=== PATIENT | male | born 1995 | race Caucasian/White ===

== ENCOUNTER 2016-06-06 02:40 | Inpatient (IN) | payer BC ==
[2016-06-06] MEDS ORDERED: IBUPROFEN 800 MG TAB PO STA (04:26)
--- NOTE | 2016-06-06 05:07 | XR ---
PROCEDURE: FILM RIGHT SHOULDER HISTORY: 20-year-old male with right shoulder pain. COMPARISON: None TECHNIQUE: Frontal internal rotation, frontal external rotation, and transscapular-Y views of the right shoulder were obtained. FINDINGS: Bony structures are intact. Joint spaces are preserved. Soft tissues are within normal limits. IMPRESSION: Unremarkable views of the right shoulder.
--- NOTE | 2016-06-06 05:08 | ED ---
Psych HPI - General Source: patient, RN notes reviewed, old records reviewed Mode of arrival: ambulatory <Leidy Phillips - Last Filed: 06/06/16 05:38> <Brock Cazares - Last Filed: 06/07/16 00:31> - General Chief Complaint: Psychiatric Symptoms Stated Complaint: mental health Time Seen by Provider: 06/06/16 03:19 - History of Present Illness Initial Comments: Patient is a 20-year-old male with a chief complaint of suicidal ideation for approximately 2 days. Patient reports that on Monday he took an overdose of his Flexeril, Neurontin, and proceeded to vomit the following morning. Patient reports that when he vomited the following morning he did strain his right shoulder. He reports that he has been feeling suicidal for a long time. He reports he was along with this. 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 He denies any homicidal ideation. He reports that he has been battling with depression for the past few years. He reports that he recently broke up with a girlfriend and is trying to get over this. He states that he feels as no one cares about what he wants to do in life. He reports that he did tell her his mother have these feelings and she encouraged him to come to the emergency department. He reports that he has nothing to live for and cannot find the ligia in anything. He reports that he has to motions, anger and depression. He does report that he has heard voices in his head telling him negative thoughts. (Leidy Phillips) - Related Data Home Medications Medication Instructions Recorded Confirmed Cyclobenzaprine [Flexeril] 10 mg PO DAILY PRN 06/06/16 06/06/16 Escitalopram [Lexapro] 10 mg PO DAILY 06/06/16 06/06/16 Gabapentin [Neurontin] 400 mg PO TID 06/06/16 06/06/16 Lubiprostone [Amitiza] 8 mcg PO BID 06/06/16 06/06/16 Naproxen Sodium [Aleve] 440 mg PO Q12HR PRN 06/06/16 06/06/16 Allergies Allergy/AdvReac Type Severity Reaction Status Date / Time No Known Allergies Allergy Verified 06/06/16 02:48 Review of Systems ROS Other: All systems not noted in ROS Statement are negative. <Leidy Phillips - Last Filed: 06/06/16 05:38> ROS Other: All systems not noted in ROS Statement are negative. <Brock Cazares - Last Filed: 06/07/16 00:31> ROS Statement: Those systems with pertinent positive or pertinent negative responses have been documented in the HPI. Past Medical History Past Medical History: Hypertension Additional Past Medical History / Comment(s): SL ELEV BLOOD PRESSURE, NO TX. POS BLOOD IN STOOL. History of Any Multi-Drug Resistant Organisms: None Reported Additional Past Surgical History / Comment(s): ESOPHAGOSCOPY, AGE 10. PENILE SURG AGE [age]. EXC WISDOM TEETH. Past Anesthesia/Blood Transfusion Reactions: Motion Sickness Additional Past Anesthesia/Blood Transfusion Reaction / Comment(s): MILK MOTION SICKNESS Past Psychological History: Anxiety, Depression Smoking Status: Current some day smoker Past Alcohol Use History: None Reported Additional Past Alcohol Use History / Comment(s): SMOKED 1 PACK PER WK X4 YEARS , QUIT 09/2015. Past Drug Use History: Marijuana Additional Drug Use History / Comment(s): DAILY USE - Past Family History Mother Family Medical History: Cancer <Leidy Phillips - Last Filed: 06/06/16 05:38> General Exam Limitations: no limitations General appearance: alert, in no apparent distress Head exam: Present: atraumatic, normocephalic, normal inspection Eye exam: Present: normal appearance, PERRL, EOMI. Absent: scleral icterus, conjunctival injection, periorbital swelling ENT exam: Present: normal exam, mucous membranes moist Neck exam: Present: normal inspection. Absent: tenderness, meningismus, lymphadenopathy Respiratory exam: Present: normal lung sounds bilaterally. Absent: respiratory distress, wheezes, rales, rhonchi, stridor Cardiovascular Exam: Present: regular rate, normal rhythm, normal heart sounds. Absent: systolic murmur, diastolic murmur, rubs, gallop, clicks GI/Abdominal exam: Present: soft, normal bowel sounds. Absent: distended, tenderness, guarding, rebound, rigid Extremities exam: Present: normal inspection, full ROM, normal capillary refill. Absent: tenderness, pedal edema, joint swelling, calf tenderness Right Shoulder Exam: Present: normal inspection, full ROM Upper Arm exam: Present: normal inspection, full ROM Elbow exam: Present: normal inspection, full ROM Forearm Wrist exam: Present: normal inspection, full ROM Hand Wrist exam: Present: normal inspection, full ROM Back exam: Present: normal inspection Neurological exam: Present: alert, oriented X3, CN II-XII intact Psychiatric exam: Present: depressed, suicidal ideation. Absent: normal affect , normal mood, agitated, anxious, flat affect, manic, homicidal ideation Skin exam: Present: warm, dry, intact, normal color. Absent: rash <Leidy Phillips - Last Filed: 06/06/16 05:38> <Brock Cazares - Last Filed: 06/07/16 00:31> - General Exam Comments Initial Comments: Well-appearing 20-year-old male. (Leidy Phillips) Medical Decision Making - Radiology Data Radiology results: report reviewed <Leidy Phillips - Last Filed: 06/06/16 05:38> - Lab Data Result diagrams: 06/06/16 09:30 06/06/16 09:30 <Brock Cazares - Last Filed: 06/07/16 00:31> - Medical Decision Making Patient is a 18-year-old male with chief complaint of suicidal ideation. He reports it has nothing to live for. He reports that on Monday he took multiple pain medications in order to kill himself. Reports he woke up the next morning and vomited. He reports the only history of motions, anger and sadness. Patient denies any homicidal ideations. He does report that he hears voices that tell negative thoughts. Patient also reports that he did strain his right shoulder. Straight of the shoulder is reviewed to be negative for any acute process. I will give the patient Motrin at this time. Patient will be medically clear at this time for psychiatric evaluation. ( Leidy Phillips) - Lab Data Lab Results 06/06/16 Range/Units 03:23 Urine Opiates Screen Not Detected (NotDetected) Ur Oxycodone Screen Not Detected (NotDetected) Urine Methadone Screen Not Detected (NotDetected) Ur Propoxyphene Screen Not Detected (NotDetected) Ur Barbiturates Screen Not Detected (NotDetected) U Tricyclic Antidepress Detected H (NotDetected) Ur Phencyclidine Scrn Not Detected (NotDetected) Ur Amphetamines Screen Not Detected (NotDetected) U Methamphetamines Scrn Not Detected (NotDetected) U Benzodiazepines Scrn Not Detected (NotDetected) Urine Cocaine Screen Not Detected (NotDetected) U Marijuana (THC) Screen Detected H (NotDetected) - Radiology Data Shoulder x-rays are negative. (Leidy Phillips) Disposition Time of Disposition: 05:38 <Leidy Phillips - Last Filed: 06/06/16 05:38> <Brock Cazares - Last Filed: 06/07/16 00:31> Clinical Impression: Suicidal ideation Disposition: ADMITTED IP TO THIS [facility] Condition: Stable
[2016-06-06] MEDS ORDERED: MAG HYDROX/AL HYDROX/SIMETH 30 ML CUP PO PRN (07:12)
[2016-06-06] MEDS ORDERED: ACETAMINOPHEN TAB 325 MG TAB PO PRN (07:12)
[2016-06-06] MEDS ORDERED: MAGNESIUM HYDROXIDE 2,400 MG/10 ML CUP PO PRN (07:12)
[2016-06-06] MEDS ORDERED: LORazepam 1 MG TAB PO PRN (07:20)
[2016-06-06 10:00] LABS: Basophils % (A) 1 %; CH 29.6; CHCM 33.2; Eosinophils # (A) 0.1 k/uL (0-0.7); Eosinophils % (A) 2 %; HDW 2.25; HGB 14.8 gm/dL (13.0-17.5); Luc % (Auto) 2; Lymphocytes % (A) 19 %; MCH 28.9 pg (25.0-35.0); MCHC 32.3 g/dL (31.0-37.0); MCV 89.4 fL (80.0-100.0); Mean Platelet Volume 7.7; Monocytes # (A) 0.2 k/uL (0-1.0); Monocytes % (A) 4 %; Neutrophils # (A) 3.6 k/uL (1.3-7.7); Neutrophils % (A) 72 %; RBC 5.14 m/uL (4.30-5.90); RDW 11.9 % (11.5-15.5); WBC (Perox) 5.16
[2016-06-06 10:09] LABS: ALT 20 U/L (21-72); AST 15 U/L (17-59); Alkaline Phosphatase 60 U/L (38-126); Anion Gap 12 mmol/L; Blood Urea Nitrogen 18 mg/dL (9-20); Calcium 9.8 mg/dL (8.4-10.2); Carbon Dioxide 28 mmol/L (22-30); Chloride 100 mmol/L (98-107); Glucose 97 mg/dL (74-99); Non-African American GFR(MDRD) >60 (>60 ml/min/1.73 sqM); Potassium 3.8 mmol/L (3.5-5.1); Sodium 140 mmol/L (137-145); Total Bilirubin 0.9 mg/dL (0.2-1.3); Total Protein 7.7 g/dL (6.3-8.2)
[2016-06-06] MEDS ORDERED: IBUPROFEN 800 MG TAB PO PRN (13:24)
[2016-06-06] MEDS: GABAPENTIN 100 MG CAP PO SCH ×2 (15:59→21:23)
[2016-06-06] MEDS: MIRTAZAPINE 15 MG TAB PO SCH (21:23)
--- NOTE | 2016-06-07 06:01 | HP ---
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 Patient presented to the mental health unit on voluntary basis for depression and suicidal ideation. HISTORY OF PRESENT ILLNESS: Patient stated that he has history of depression since age 11; however, his depression has been getting worse since January 2016 after the end of 4-year relationship. Patient stated that for the last 2 to 3 weeks he has been overwhelmed, feeling hopeless, helpless, crying episodes, thinking about suicide with different plans between overdose on medication or hanging himself. Patient completed the [facility] depression inventory and a total score was 43 consistent with severe symptoms of depression. He endorses self dislike, self doubt as he mentioned couple of times "I look like a child, I don't have any muscles and I am underweight". Loss of pleasure, indecisive, loss of energy, not sleeping at night, irritability, anger outbursts. He lost 15 pounds over the last 6 months due to poor appetite. He kept saying, "I'm having horrible self image". During my interview, the patient did not stop crying throughout the session. He denied any auditory or visual hallucination. He denied any idea of reference or thought of broadcasting. He described increased anxiety characterized by restless feeling, feeling on edge, irritability, and racing mind. Patient stated that recently he has been struggling with the issue regarding his sexual identity as he has marked feeling of inadequacy concerning his sexual performance also related to "I'm not masculine enough" . He did admit that for the last year he had experience with different lover, but he has been feeling guilty about this because "I told my girlfriend and she stated that she cannot forgive me". Patient did admit that he has persistent and marked distress about his sexual orientation according to him, "I don't think I am loyola, because I'm missing my girlfriend, but I do like to have it both ways". Patient talked about ongoing stressors in addition that the end of 4 year relationship. Patient has been struggling with shoulder pain for the last 7 months and he was on short-term medical leave from his job due to shoulder pain, but they did tell him to go back to work on May 11 and since then he stated that he has been overwhelmed with job and with chronic pain. Patient had complete workup, even including he had steroid injection and he still rating his pain 10 from 10, 10 being the worse. Patient stated that he does not have a lot of friends and he is ( introverted ) "My girlfriend was my best friend and my lover and I was planning to get ". SUBSTANCE ABUSE HISTORY: 1. Alcohol: He started drinking at age 14 or 15, but according to him, "It's not an issue at all. I just don't like to drink on daily basis". When I did ask him when was the last time that he drank and how much, he stated it was last week. He had at least have a pint of vodka. He denied any withdrawal symptoms. 2. Cannabis: He started smoking marijuana 4 or 5 years ago but according to him it started just half a joint and for the last 7 months since he has been off on medical leave for his ( ) he was smoking up to 8 joints a day. PAST PSYCHIATRIC HISTORY: There is outpatient counseling for a couple of years at age 6. According to him his mother took him to therapy for "I had an anger outburst and I was addicted to the internet". His primary care physician started him on antidepressant 2 years ago. He tried Zoloft, but it did give him a lot of sexual side effect then he was on Lexapro and he stated it did help him, but patient discontinued the medication a few months ago. FAMILY HISTORY OF PSYCHIATRIC ILLNESS: Patient mother had history of depression and she told him that she attempted suicide when she was teen age. HIS HOME MEDICATION: 1. Neurontin 400 mg 1 tablet 4 times a day. 2. Flexeril p.r.n. ALLERGIES: There is no known allergy. MEDICAL HISTORY: Bursitis in both shoulders. SOCIAL HISTORY: Patient's parents never . Patient was raised by his mother. He stated that at the end of the third grade his mother decided to let him be home schooling because "I was very introverted and she did not want the kids making fun of me". He did have very limited social activity and according to him most of the day he was in homeschooling or on the internet. At age 10 and 11, he stated that he started feeling distant from his mother because "We don't see eye to eye with each other". Patient's biological father was not in the picture; however, he was paying child support. 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 He has been living on his own since age 16. His girlfriend, Zee, was living with him up to January 2016 In addition to some issue relationship regarding his sexual identity , patient has been in chronic pain from his right shoulder for the last 7 months. Patient denied any current legal problem. MENTAL STATUS EXAMINATION: Patient presented as young male who looks much younger than stated age. There is no eye contact. He kept looking at the floor, crying through the session. Speech is coherent, at times circumstantial. Thought process is linear, but at times as I mentioned, circumstantial. There is no evidence of looseness of association or flight of idea. He endorses depressed mood with recent suicidal ideation. He reports no homicidal ideation. Affect is very labile. He demonstrates no verbal or physical aggression. There is no psychomotor agitation. He endorses no auditory or visual hallucination. No specific delusion or idea of reference. He does not appear manic or hypomanic. It seems that he has been struggling with his self image and his sexual identity and he stated that he never talked about it except with his girlfriend. There is a lot of his obsession and rumination about his body and his weight in addition to his sexual identity. His thinking appears concrete. His insight and judgment are limited. INTELLECTUAL FUNCTION: Average. Patient is aware of illness and the need for mental health treatment. STRENGTHS: Patient has his own income and able to ask for help. WEAKNESS: Substance abuse problem, relationship problem, chronic back pain. DISCHARGE DIAGNOSES: 1. Major depression, recurrent, severe, without psychotic feature. 2. Marijuana use disorder. 3. Sexual identity disorder, not otherwise specified. 4. Chronic pain. PLAN: Patient has been admitted to the mental health unit on voluntary basis. I reviewed his symptoms and the medication option. I did discuss with him to restart him on Lexapro and I will add mirtazapine or Remeron at bedtime to restore his appetite and sleep. Regarding his Neurontin for his chronic pain. I will cut it down from 400 four times to just 200 three times a day to minimize sedation and tiredness. I will give him Motrin 800 every 8 hours p.r.n. for pain. Patient will participate in group therapy as tolerated. Will request a routine medical consultation. Social work will meet with the patient to complete psychosocial assessment and begin discharge planning. Will monitor the patient for his safety and any side effect from psychotropic medication. Length of stay 5 to 6 days. MTDD
[2016-06-07] MEDS: ESCITALOPRAM 10 MG TAB PO SCH (09:38)
[2016-06-07] MEDS: GABAPENTIN 100 MG CAP PO SCH ×3 (09:38→21:25)
--- NOTE | 2016-06-07 10:25 | CONS ---
DATE OF CONSULTATION: 06/06/2016 REASON FOR CONSULTATION: Medical management requested by Dr. Lara. CONSULTATION: This very pleasant 20-year-old patient of Dr. Fountain has got a history of anxiety, depression, also got chronic bursitis he has been told for which he was taking marijuana and kept taking more and more as it did not help and he felt clouded with the same. Amongst other things, the patient has a low self profile and broke up with his girlfriend a few months ago, still getting to him. Patient actually has had suicidal ideations for 2 days. Patient took an overdose of his Flexeril, Neurontin and proceeded to vomit the following morning. He has been having a low ( ) for quite sometime and thus decided to get in. REVIEW OF SYSTEMS: CONSTITUTIONAL: None. HEENT: Some acne. RESPIRATORY: None. CARDIOVASCULAR: None. GASTROINTESTINAL: None. GENITOURINARY: None. MUSCULOSKELETAL: Some pain in the shoulder blade bursitis. LYMPHATICS: None. PSYCHIATRY: As above. NEUROLOGICAL: None. PAST MEDICAL HISTORY: Depression, anxiety, marijuana use. PAST SURGICAL HISTORY: Esophagoscopy age 10. Penile surgery age 4 to 5. SOCIAL HISTORY: The patient works in a paper mill. Smokes about 8 joints a day, has marijuana card. Did smoke for about 4 years; stopped last year. FAMILY HISTORY: Cancer. SOCIAL HISTORY: Lives by himself. Works in a paper factory. HOME MEDICATIONS: 1. Amitiza 8 mcg p.o. b.i.d. 2. Lexapro 10 mg p.o. daily. 3. Flexeril 10 mg p.o. daily p.r.n. 4. Aleve 440 mg p.o. q.12 p.r.n. 5. Neurontin 400 mg p.o. t.i.d. ALLERGIES: None. On examination, temperature 98.4, pulse 89, respirations 20, blood pressure 129/69, pulse ox 96% on room air. GENERAL APPEARANCE: Thin build, sitting up, comfortable. EYES: Pupils equal. Conjunctivae normal. HENT: External appearance of nose and ears normal. Oral cavity normal. NECK: JVD not raised. Mass not palpable. RESPIRATORY: Effort normal. Lungs are clear. CARDIOVASCULAR: First and second sounds normal. No edema. ABDOMEN: Soft, nontender. Liver and spleen not palpable. LYMPHATIC: No lymph nodes palpable in neck or axillae. PSYCHIATRY: Alert and oriented x3. Mood affect slightly anxious appearing. INVESTIGATIONS: White count 5, hemoglobin 14.8. Potassium 3.8. Urine drug screen positive for marijuana and tricyclic antidepressants. ASSESSMENT: 1. Major depression, recurrent, with suicidal ideation. Will need further evaluation per psychiatrist. 2. Chronic marijuana dependence. 3. Chronic musculoskeletal pain. I am not sure patient really needs the high dose of Neurontin. Patient usually able to do 30 pushups he says. PLAN: Patient dose of Neurontin can be cut back and hopefully eventually weaned off. Patient will need some group counseling. Further treatment as per psychiatrist. Patient does understand he doing excessive marijuana and will slowly wean off the same. Thank you Dr. Sykes.
--- NOTE | 2016-06-07 14:12 | P.PN ---
Progress Note - Text Interval history: Patient was seen for follow-up. He states that he slept throughout the night and staff documented he slept 6 hours. He reports his appetite is improving .He stated that he has been able to participate in groups and interact with other peers ,patient talked about his relationship with Zee and why he did not tell her about his relationship with men and she got upset when she found out from his computer ""I FELT LIKE LESS MAN AND ASHAMED IF I TOLD HER ABOUT IT ,I HAD THREE RELATIONSHIPS OVER LAST TWO YEARS BUT IT WAS EXPERIMENTAL RELATIONSHIP ,THE ISSUE THAT SHE IS NOT TRUSTING ME",discussed with patient his conflict with sexuality ,patient had penile surgery at age 4 "HYPOSPADIUS" and since he has been feeling "NOT MASCULINE ENOUGH",patient stated that his mother never believed in psychotropic medications "She was giving me herbs and natural oils" Patient was seen by DR GARCIA Mental status exam: The patient is alert he is dressed in his clothing ,good grooming , good eyes contact ,stated mood "Anxious",affect is labile ,was not tearful and sobbing as yesterday,speech is coherent ,hyperverbal ,circumstatial but easy to redirect ,denies any active suicidal or homicidal ideation ,denies any psychotic features ,endorses :guilt and shame feelings ,confused about his identity,low self esteem and self dislike:I HATE MY BODY ,IT IS NOT MUSCULAR", insight and jugdment are improving Plan: Continue current medications ,continue participation in group and milieu , discussed with him how to work on his self esteem and his confusion regarding his sexual identity ,SW to meet with his mother for collateral information , continue inpatient and close monitoring his mood
[2016-06-07 15:29] LABS: Appearance,Urine Clear (Clear); Bilirubin,Urine Negative (Negative); Glucose,Urine (UA) Negative (Negative); Ketones,Urine 1+ (Negative); Leukocyte Esterase,Urine Negative (Negative); Nitrite,Urine Negative (Negative); Protein,Urine Negative (Negative); Specific Gravity,Urine 1.013 (1.001-1.035); UA Billing (MACRO vs. MICRO) CHEM
[2016-06-07] MEDS: MIRTAZAPINE 15 MG TAB PO SCH (21:25)
[2016-06-08 06:18] VITALS: RESP 18
[2016-06-08] MEDS: GABAPENTIN 100 MG CAP PO SCH ×3 (09:23→21:55)
[2016-06-08] MEDS: ESCITALOPRAM 10 MG TAB PO SCH (09:23)
--- NOTE | 2016-06-08 10:47 | P.PN ---
Progress Note - Text Interval history: Patient was seen for follow-up. He states that he slept throughout the night and staff documented he slept 5 hours. He reports his appetite is improving .He stated that he has been able to participate in groups and interact with other peers ,patient talked about work stress as he is struggling with bursitis in both shoulders and since he is back working ,after 7 months being on short term disability ,patient is having more pain , discussed referral to PT instead of opium medication ,patient agreed , discussed his cannabis use for last 2-3 years and patient is willing to abstain from it Patient called his mother yesterday and felt that she was very supportive Mental status exam: The patient is alert he is dressed in his clothing ,good grooming , good eyes contact ,stated mood "Anxious",affect is appropriate , speech is coherent ,at time circumstantial but easy to redirect ,denies any active suicidal or homicidal ideation ,denies any psychotic features ,denies any hopeless or helpless feeling,insight and judgment are improving Plan: Continue current medications ,continue participation in group and milieu , discussed with him how to work on his self esteem and his confusion regarding his sexual identity ,SW to meet with his mother for collateral information , continue inpatient and close monitoring his mood
[2016-06-08] MEDS: MIRTAZAPINE 15 MG TAB PO SCH (21:55)
[2016-06-09 02:13] VITALS: BP 139/97; PULSE 95; TEMP 97.5
[2016-06-09] MEDS: GABAPENTIN 100 MG CAP PO SCH (08:36)
[2016-06-09] MEDS: ESCITALOPRAM 10 MG TAB PO SCH (08:36)
--- NOTE | 2016-06-10 08:38 | DS ---
DATE OF ADMISSION: 06/06/2016 DATE OF DISCHARGE: 06/09/2016 CONSULT PHYSICIAN: Jessica. CONSULTING PROVIDER: Dr. Ash CONSULT REASON: For medical management. Do you want consulting provider notified? Yes. DISCHARGE DIAGNOSES: 1. Major depressive disorder, recurrent, in partial remission. 2. Sexual identity disorder, not otherwise specified. 3. Cannabis abuse on a daily basis. BRIEF SUMMARY OF ADMISSION NOTE: The patient was admitted to the mental health unit from the emergency room for depression and suicidal ideation. Patient reports chronic history of depression since age 11, but it was getting worse after the end of 4 year relationship. In addition, he has been struggling with chronic shoulder pain due to bursitis. Patient stated that he was thinking about different plan to overdose or hang himself. However, he was able to call his mother to let her known that he is coming to the hospital to check in to the mental health unit. For further social history, past psychiatric history, please refer to my initial history and physical examination. HOSPITAL COURSE: Patient was admitted to the mental health unit on voluntary basis. Once he was admitted to the mental health unit I did reviewed his psychiatric symptoms and treatment options. Patient was complaining of poor sleep, poor appetite, I did start him on Premarin or mirtazapine 15 mg at bedtime to restore his sleep and to improve his appetite. Patient was already started on Lexapro 5 mg by his primary care physician 2 months ago so I increased the dose to 10 mg daily. Patient was very active in group therapy and activity therapy. He was seen by Dr. Ash and according to Dr. Ash's assessment and plan patient has chronic musculoskeletal pain and as the patient was on Neurontin 400 three times a day, he stated that he does not recommend this high dose of Neurontin as the patient seems to have more bursitis than severe pain. Even the patient told him that he was able to do 30 pushups so Neurontin was decreased to 200 three times a day and he was given Motrin 800 every 8 hours p.r.n. for pain. During his stay here he stated that he did not have severe pain and usually his pain was rated between 3 to 4/10, 10 being the worse. However, he was concerned if he goes back to work and he would do the same repetitive work he will have more shoulder pain. Patient was in physical therapy a couple of months ago and according to him it did help his shoulder so I did refer him back to be evaluated for physical therapy and to follow their recommendations. While on the mental health unit patient was very active in all the groups, very cooperative, he did participate in our session on daily basis, and he was able to receive input regarding cognitive reframing and assumptions that he may be making. We did explore his confusion regarding his sexual identity and patient stated that he does feel more comfortable to discuss it openly. The family meeting has been scheduled this morning with his mother. MENTAL STATUS EXAMINATION: Patient was alert, was sitting in the chair with good eye contact, very polite, smiling. Hygiene and grooming are adequate. Speech is spontaneous. Thought process is linear. He is reporting no homicidal or suicide ideation, intent or plan. He does not feel hopeless or helpless. He is willing to explore more about his sexual identity in outpatient setting. He stated that he wanted to go back to work on June 13. Does not have any access to firearms. There is no evidence of psychosis. There is no evidence of hypomania or simba. His insight and judgment improved. There is no verbal or physical aggressive observed. PLAN: Patient will be discharged from the mental health unit today after the family meeting. Patient was given one-month supply for Lexapro 10 mg daily for 4 weeks supply, mirtazapine 15 mg at bedtime for 4 weeks supply, Motrin 800 to take 3 times a day p.r.n. for pain, Neurontin 200 three times a day for pain. Patient has an appointment for follow up for counseling [facility] on June 14, 2016 at 5:00 p.m. Patient to see his primary care physician, Jacob Fountain, in 1 or 2 days. Patient was instructed to abstain from marijuana as he was smoking up to a joint daily and I did discuss with him the impact of using marijuana on his mental illness and mental stability and patient verbalized understanding. There is no eminent safety risk and patient is appropriate for transition to outpatient care. Patient was instructed to return to the emergency room if any acute safety concerns. Patient denied any side effect from his psychotropic medication and he is able to tolerate medication as prescribed. Patient's condition at the time of the discharge is stable.
== END 2016-06-09 09:39 | disposition home or self-care (01) | DRG 885 ==
LOC: EC 02:40 → 3MHU 06:29
PROVIDERS: ADMIT Psychiatry & Neurology Psychiatry; ATTEND Psychiatry & Neurology Psychiatry
DX: F33.41 Major depressive disorder, recurrent, in partial remission (principal); R45.851 Suicidal ideations; I10 Essential (primary) hypertension; F41.9 Anxiety disorder, unspecified; F12.20 Cannabis dependence, uncomplicated; F17.200 Nicotine dependence, unspecified, uncomplicated; G89.29 Other chronic pain; M75.50 Bursitis of unspecified shoulder; M79.1 Myalgia; Z79.899 Other long term (current) drug therapy; Z81.8 Family history of other mental and behavioral disorders; Z91.5 Personal history of self-harm
CPT/HCPCS: 80053; 80306; 81003; 82075; 84443; 85025; 99285